=== PATIENT | female | born 1990 ===

== ENCOUNTER 2017-12-29 01:18 | Inpatient (IN) | payer OTHER ==
[~2017-12-29] VITALS: Ht 165.1 cm; Wt 117.9 kg
[2017-12-29 04:34] LABS: ABSOLUTE BASOPHIL COUNT 0 /CUMM (0.0-0.2); ABSOLUTE EOSINOPHIL COUNT 0.1 /CUMM (0.0-0.7); ABSOLUTE GRANULOCYTE CT 14.4 /CUMM (1.4-6.5); ABSOLUTE LYMPH COUNT 1.9 /CUMM (1.2-3.4); ABSOLUTE MONOCYTE COUNT 0.8 /CUMM (0.10-0.60); BASOPHIL % 0.2 % (0.0-2.0); EOSINOPHIL % 0.6 % (0-5); GRANULOCYTE % 83.6 % (42.2-75.2); HEMATOCRIT 32.9 % (37-47); MEAN CORPUSCULAR HGB 25.6 PG (27.0-31.0); MEAN CORPUSCULAR HGB CONC 32.9 G/DL (33.0-37.0); MEAN CORPUSCULAR VOLUME 77.9 FL (81.0-99.0); MEAN PLATELET VOLUME 10.8 FL (7.4-10.4); PLATELET COUNT 276 /CUMM (130-400); RBC DISTRIBUTION WIDTH 14.3 % (11.5-14.5); RED BLOOD CELL CT 4.22 /CUMM (4.20-5.40); WHITE BLOOD CELL COUNT 17.2 /CUMM (4.8-10.8)
--- NOTE | 2017-12-29 09:47 | History & Physical ---
General Information and HPI MD Statement: I have seen and personally examined CARL KING and documented this H&P. The patient is a 27 year old female at 39[] weeks and [0] days gestation who presented with a chief complaint of [SROM of clear fluid and some uterine cramping.]. Source of Information: patient, record Exam Limitations: no limitations History of Present Illness: Ms. King called through the service c/o leaking clear AF and having mild UCs every 5-10min. 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 She has had no vaginal bleeding, and the baby has been moving. 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 History: macrosomia, 1 elective Ab Past Pregnancies Past Pregnancies: Date of Delivery: n/a Medical History Blood Transfusion Hx: No Type of Reaction: none Neurological: NONE EENT: allergies Cardiovascular: NONE Respiratory: asthma Gastrointestinal: constipation Renal: urinary incontinence Musculoskeletal: chronic back pain Psychiatric: NONE Endocrine: obesity, MORBID obesity Blood Disorders: anemia 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 Home Who Do You Live With? partner Primary Language: Malian Smoking Status: Current Some Day Smoker ETOH Use: denies use Illicit Drug Use: denies illicit drug use Living Will? unknown Power of Factory Hand/HCP? unknown Other Social History: Pt. presents in labor wearing a tight "wiggle dress", heavily made up, wearing false eyelashes, lots of perfume, high heels, and long painted fingernails. 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 EENTM: Reports: nasal congestion. Cardiovascular: Reports: peripheral edema. Respiratory: Reports: no symptoms. GI: Reports: nausea. Genitourinary: Reports: frequency. Musculoskeletal: Reports: back pain. Skin: Reports: rash. Neurological/Psychological: Reports: tingling. Hematologic/Endocrine: Reports: no symptoms. Immunologic/Allergic: Reports: no symptoms. All Other Systems: Reviewed and Negative Date of LMP: 04/08/17 Post Menopausal: No Mammogram Testing Status: Test never done Date of Last Pap Smear: 06/13/17 Colonoscopy Testing Status: Test never done Exam & Diagnostic Data Last 24 Hrs of Vital Signs/I&O Intake & Output 12/29 1600 08/ 0800 12/29 0000 Intake Total Output Total Balance Patient 260 lb Weight Obstetric Exam Wgt Gained During : 30 lbs Pelvimetry: adequate Dilation (cm): 3 Effacement (%): 100 Station: -2 Membranes: intact Fluid: unknown Fundal Height (cm): 39 Multiple Gestation? No Contractions: Q3 #1 - FHR Baseline: 140 Category: 1 Estimated Weight: 4000g Presentation: VTX Patient for Induction? No Hernandez Score Hernandez Score Response Value Cervix Position: anterior 2 Cervix Consistency: soft 2 Cervix Effacement: >80% 3 Cervix Dilation: 3-4 cm 2 Cervix Station: -2 1 Total 10 Physical Exam General Appearance Alert, Oriented X3, Mild Distress (crying) Skin No Significant Lesion HEENT Atraumatic, Mucous Membr. moist/pink Neck Supple, No JVD Lymphatic Cervical nl Cardiovascular Regular Rate Lungs Normal Air Movement Abdomen Soft, No Tenderness, No Masses Neurological Normal Gait, Normal Speech, Sensation Intact, Reflexes 2+ Extremities No Cyanosis (symmetrical peripheral edema) Vascular Pulses Symmetrical Breasts Breast appear nl Reproductive (FEMALE) Normal female genitalia Pelvic (FEMALE) No Discharge Rectal Guiac Negative (hemorrhoids) Labs Blood Type & Rh: A+ Antibody Screen: neg Hct/Hgb & Platelets #1: 11.7/38.8%, 231K Hct/Hgb & Platelets #2: 10.5/36.4%, 262K Rubella: Immune VDRL #1: NR VDRL #2: NR HbsAg: NR HIV #1: NR HIV #2 NR 1 Hr P Group B Strep: pos PCN allergy, Clinda resistant, Vanco will be used Initial Ultrasound: 06/13/17 - 10w4d Anatomy Ultrasound: 08/21/17 - normal anatomy and growth Ultrasound for EFW: 10/16/17 - 28w, 72% 11/26/17 - 34w3d, 97% 8/7/18 - 38w, >97% Genetic Testing: normal 1st TMS and Counsyl Prelude DNA analysis Last 24 Hrs of Labs/Eder: Laboratory Tests 12/29/17 0400: CBC w Diff MAN DIFF ORDERED, RBC 4.22, MCV 77.9 L, MCH 25.6 L, MCHC 32.9 L, RDW 14.3, MPV 10.8 H, Gran % 83.6 H, Lymphocytes % 10.8 L, Monocytes % 4.8, Eosinophils % 0.6, Basophils % 0.2, Absolute Granulocytes 14.4 H, Absolute Lymphocytes 1.9, Absolute Monocytes 0.8 H, Absolute Eosinophils 0.1, Absolute Basophils 0, Platelet Estimate ADEQUATE, Polychromasia 1+, Hypochromic- Microcytic 1+, Urine Color YEL, Urine Clarity HAZY H, Urine pH 6.0, Ur Specific [place] 1.020, Urine Protein NEG, Urine Ketones 15 H, Urine Nitrite NEG, Urine Bilirubin NEG, Urine Urobilinogen 0.2, Ur Leukocyte Esterase LARGE H, Ur Microscopic SEDIMENT EXAMINED, Urine RBC RARE, Urine WBC 50-75 H, Ur Epithelial Cells MOD H, Urine Bacteria FEW H, Urine Hemoglobin NEG, Urine Glucose NEG 12/29/17 0348: Membrane Rupture Cancelled 12/29/17 0140: Membrane Rupture NEGATIVE Assessment/Plan As Ranked By This Provider Problem List: 1. Delivery by section of full-term infant 2. Arrested active phase of labor 3. macrosomia 4. Spontaneous onset of labor 5. Morbid obesity 6. Primiparous 7. 39 weeks gestation of Core Measures Venous Thromboembolism VTE Risk Factors Smoker No Mechanical VTE Prophylaxis d/t Early Ambulation No VTE Pharm Prophylaxis d/t Surgical Contraindication (will order postop) Attending MD Review Statement Attending Statement Attending MD Statement: examined this patient, discussed with family, reviewed EMR data (avail), discussed w/nursing
--- NOTE | 2017-12-29 09:54 | PN- OBGYN ---
Surgical Brief Attending Note Brief Attending Note: 0930 c/o vaginal pressure, otherwise comfortable with epidural, FHR 150, category 1, no decels, UCs q3-4, moderate Cervix 7-8cm/100%/VTX -1 A: - normal labor progress -suspect macrosomia, vtx is well-engaged in pelvis, team is aware of and ready for risk of shoulder dystocia P: con't present management anticipate 1145 Remains in control, some more pressure sensation. FHR 145, few accels, no decels UCs q3-4, uterus gets firm Cervix 9cm/VTX -1 maternal temp 99. Received one Vanco dose at 5am. 1600 fully dilated with an anterior lip, VTX -1 station. - Team tried to teach patient to push with her UCs, in order to push the lip out of the way, but this went poorly as her UCs are so far apart and mild, and the patient insists on keeping her knees and legs closed in modesty. I will start a small dose of Pitocin on her in order to increase the frequency and strength of UCs so patient can learn to push her baby out. I discussed this with the patient. 1929 I re-evaluated the patient again. She received an epidural bolus 1.5 hours ago, but is now feeling not only her UCs but vaginal pressure as well. FHR BL 140, few accels, no decels, decreased variability UCs q2-4 on Pitocin 1mu. She received her 2nd dose of Vanco. A: protracted labor, suspected macrosomia P: will begin stage 2, if patient cooperative - she is eager to try, if patient is unable to push I'll deliver the baby by primary C/S. 2029 Pt. has learned to push with Nursing, and is pushing hard. VTX is at -1/0 station. There is a small caput, no molding. LOT/GABRIELA position. UCs every 2-4, firm. FHR 150, decreased variability, occ. variable. Will recheck in 30min. 2114 No descent of the VTX after pushing effectively for more than an hour. I recommended delivery by primary C/S due to arrest of descent. Risks, benefits, purpose, and alternatives d/w patient, questions answered, and informed consent obtained. Team called in.
--- NOTE | 2017-12-30 00:25 | Operative Report ---
Operative/Inv Procedure Report Surgery Date: 12/29/17 Name of Procedure: Primary C/S Pre-Operative Diagnosis: arrest of descent Post-Operative Diagnosis: same, with brow position upon delivery of VTX Estimated Blood Loss: 800cc Surgeon/Unit Aide: Yosi ISAAC,Alejandra Zavala MD Anesthesia: moderate sedation, block Monitors: BP, EKG, O2 sat, temp, RR IV Fluids: LR Implants: none Urine Output: 500cc, clear, red-tinged, catheterized Drains: Senior Specimens: cord bloods Microbiology: urine culture Tourniquet: none Complications: none Condition: good Operative Indication: arrest of active labor at term Operative/Procedure Note Note: The patient was brought to the OR, placed on the OR table in the dorsal supine position with a left lateral tilt. Her labor epidural had been re-dosed for C/S by Anesthesia. The abdomen was prepped with Chloroprep. After drying drapes were placed creating the sterile field, the patient was tested and the block was found to be adequate, and a time-out was performed. The skin was incised with a scalpel in a Pfannenstiel fashion, the incision was carried down through the subcutaneous tissue with cautery, with close attention to hemostasis. The fascia was nicked on each side of the linea alba and opened with cautery each side in a curvilinear fashion. The superior and inferior median raphes were incised with Damian scissors, the rectus muscles were bluntly in the midline, the peritoneum was grasped and entered bluntly, and the peritoneal opening was bluntly stretched. The uterus was palpated for rotation. The lower [place] blade was placed suprapubically and the Salcido retractor was placed superiorly in the incision, and a bladder flap was created with Metzenbaum scissors, and then loosened bluntly off the lower uterine segment. The [place] was repositioned, and then the lower uterine segment was incised transverely with Metzenbaum scissors. The uterine incision was extended bluntly, and clear amniotic fluid was noted. The retractors were removed and the vertex was delivered. The head was found to be very extended with the face posterior and the brow presenting, so with difficulty delivery of the head was accomplished with pushing the head up out of the pelvis and simultaneously flexing the neck. The mouth and nose were suctioned, the face was wiped clean with a lap pad, active limb movements and spontaneous cry were noted, the cord was doubly clamped and cut, and the infant was handed off to the Pediatric team in attendance. The placenta was delivered spontaneously and completely from the uterine cavity, the uterus was exteriorized, wrapped in a moist lap pad, the cavity was wiped clean of membranes with a dry lap pad. The incision angles were grasped with T clamps, and the uterine incision was then closed in 2 layers with #1.0 chromic; the first layer was a running locking stitch, and the second layer was an imbricating stitch. There was good hemostasis of the uterine closure. The bladder flap was then reapproximated with a running stitch of 2.0 Vicryl. The cul-de-sac was irrigated and cleaned of clots, the adnexa were inspected and found to be normal. The uterus was then returned to the abdominal cavity. The gutters were cleaned of clots with clean moist lap pads, and the uterine incision was reinspected for hemostasis. All lap pads and instruments were removed from the abdominal cavity, and a surgical sweep was negative. The parietal peritoneum was grasped with Jailyn clamps and closed in a running fashion with 2.0 Vicryl. The rectus muscles were reapproximated in the midline with interrupted figure-of-8 sutures of 2.0 Vicryl. Hemostasis was evaluated and found to be good. The rectus fascia was closed with #1 Vicryl from each incision corner to the midline. The subcutaneous tissue was irrigated, checked for hemostasis with cautery, and closed with interrupted sutures of 2.0 plain gut. The skin was closed with alexy. The wound was cleaned and dried, a sterile dressing, and then a pressure dressing were applied. The patient was cleaned and changed and transferred to recovery in very good condition. The needle, instrument, lap pad, and sponge counts were correct twice by the end of the procedure. <Electronically signed by Kathy Deluca MD> 12/31/17 0037 CC: Kahty Deluca MD Report Status: Signed Report #: [id number] Page[p pg] Findings: single viable female infant, 9,9, 7#, from the extended brow position, clear AF, 3VC, placenta intact, uterus, tubes, and ovaries normal Discharge Disposition: cbc CC: Kathy Deluca MD Report Status: Signed Report #: [id number] Page[p pg]
[2017-12-30 01:22] VITALS: BP 113/61
[2017-12-30 09:23] LABS: ABSOLUTE BASOPHIL COUNT 0 /CUMM (0.0-0.2); ABSOLUTE EOSINOPHIL COUNT 0 /CUMM (0.0-0.7); ABSOLUTE GRANULOCYTE CT 18.4 /CUMM (1.4-6.5); ABSOLUTE LYMPH COUNT 1.1 /CUMM (1.2-3.4); BASOPHIL % 0 % (0.0-2.0); EOSINOPHIL % 0 % (0-5); GRANULOCYTE % 89.6 % (42.2-75.2); HEMATOCRIT 28.6 % (37-47); MEAN CORPUSCULAR HGB 25.1 PG (27.0-31.0); MEAN CORPUSCULAR HGB CONC 32.2 G/DL (33.0-37.0); MEAN CORPUSCULAR VOLUME 78.2 FL (81.0-99.0); MEAN PLATELET VOLUME 10.5 FL (7.4-10.4); PLATELET COUNT 229 /CUMM (130-400); RBC DISTRIBUTION WIDTH 14.7 % (11.5-14.5); RED BLOOD CELL CT 3.65 /CUMM (4.20-5.40); WHITE BLOOD CELL COUNT 20.6 /CUMM (4.8-10.8)
--- NOTE | 2017-12-30 15:48 | PN- OBGYN ---
Surgical Brief Attending Note Brief Attending Note: POD 1 Patient laying in bed supine, same position she labored in for 8 hours unwilling to elevate head. The room was full with 14 visitors, RN and I asked them to step out briefly. Pt. 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 (labor epidural was used in OR and did not work well, not much Duramorph given). Earlier was in chair, +void, ambulated in room. Tolerating POs, no N&V. afebrile, VS normal, UOQ adequate Lips - pink, moist Neck - supple Abd - soft, NT Fundus - firm, NT Dressing - dry/intact Perineum - dry Extr - benign A: stable s/p C/S for arrest of descent, brow position in OR morbid obesity anemia, normal small drop from admission H/H P: gradual advancement of diet and mobility Lovenox daily, ALPS until fully mobile Incentive spirometer (asthma, smoker, obese, immobile) alexy to remain past POD 3
[2017-12-31 08:09] LABS: ABSOLUTE BASOPHIL COUNT 0 /CUMM (0.0-0.2); ABSOLUTE EOSINOPHIL COUNT 0 /CUMM (0.0-0.7); ABSOLUTE GRANULOCYTE CT 16.6 /CUMM (1.4-6.5); ABSOLUTE MONOCYTE COUNT 0.5 /CUMM (0.10-0.60); BASOPHIL % 0 % (0.0-2.0); EOSINOPHIL % 0.1 % (0-5); HEMATOCRIT 28.2 % (37-47); MEAN CORPUSCULAR HGB 25.7 PG (27.0-31.0); MEAN CORPUSCULAR HGB CONC 33.1 G/DL (33.0-37.0); MEAN CORPUSCULAR VOLUME 77.8 FL (81.0-99.0); MEAN PLATELET VOLUME 10.3 FL (7.4-10.4); RBC DISTRIBUTION WIDTH 14.4 % (11.5-14.5); RED BLOOD CELL CT 3.62 /CUMM (4.20-5.40); WHITE BLOOD CELL COUNT 18.2 /CUMM (4.8-10.8)
[2017-12-31 09:17] LABS: GRANULOCYTE % 91.5 % (42.2-75.2); PLATELET COUNT 252 /CUMM (130-400)
--- NOTE | 2017-12-31 09:41 | PN- Post Delivery/GYN ---
Subjective Subjective: c/o nausea and vomiting, she has had nausea and vomiting on and off during labor but it now has returned in a more severe and protracted fashon unresponsive to Zofran. Review of Systems Constitutional: Denies: chills, fever. EENTM: Denies: blurred vision, double vision, visual changes. Cardiovascular: Denies: chest pain. Respiratory: Denies: cough, short of breath. Gastrointestinal: Reports: abdominal pain, constipation, distention, nausea, vomiting. Genitourinary: Denies: dysuria. Neurological/Psychological: Denies: anxiety, depressed. Objective Last 24 Hrs of Vital Signs/I&O vss now tachycardia 120 bpm Physical Exam General Appearance Alert, Oriented X3, Cooperative, No Acute Distress HEENT Atraumatic, PERRLA, Mucous Membr. moist/pink Neck Supple Cardiovascular Regular Rate (120bpm regular) Lungs Clear to Auscultation, Normal Air Movement Abdomen Soft, fundus firm somewhat distended abdomen decreased BS incision clean and dry Neurological Normal Gait, Normal Speech Extremities No Clubbing (pedal edema) Current Medications: Current Medications Sig/Shantelle Start time Last Medication Dose Route Stop Time Status Admin Acetaminophen 1,000 MG Q6P PRN 12/30 0800 DC IV Acetaminophen 650 MG Q4P PRN 12/29 2345 AC PO Bisacodyl 10 MG DAILY NEEDED PRN 12/29 2345 AC MT Diphenhydramine HCl 50 MG Q6P PRN 12/30 0030 AC IM Enoxaparin Sodium 40 MG DAILY 12/30 0900 AC 12/30 SC 0908 Ephedrine 5 MG EVERY 5 MIN PRN 12/29 0615 WA 12/29 IV 0639 Hydromorphone HCl 50 MG SEE ADMIN CRITERIA 12/30 0045 DC 12/30 IV 0300 Ibuprofen 800 MG Q6P PRN 12/29 2345 AC 12/31 PO 0114 Ketorolac 30 MG Q6P PRN 12/30 0230 DC 12/30 Tromethamine IV 12/31 0229 1153 Lactated Ringer's 1,000 ML Q8H 12/29 2345 DC IV Magnesium Hydroxide 30 ML DAILY NEEDED PRN 12/29 2345 AC PO Metoclopramide HCl 10 MG Q6P PRN 12/30 0230 DC IV Naloxone HCl 0.2 MG .[STAT] PRN 12/30 0015 DC IV Ondansetron HCl 4 MG Q4 HRS NEEDED PRN 12/31 0630 AC 12/31 PO 0743 Oxycodone/ 1 TAB Q4P PRN 12/29 2345 AC 12/31 Acetaminophen PO 0114 Oxycodone/ 2 TAB Q4P PRN 12/29 2345 AC Acetaminophen PO Oxytocin 30 UNITS PER PROTOCL 12/29 1615 DC 12/29 Lactated Ringer's 500 ML IV 1628 Promethazine HCl 50 MG Q4P PRN 12/30 0030 DC IM 12/30 2344 Promethazine HCl 25 MG Q4P PRN 12/30 0015 DC IM 12/30 2344 Senna 187 MG AT BEDTIME NEED.. 12/29 2344 AC 12/30 PO 2122 Simethicone 80 MG Q6P PRN 12/30 2129 AC 12/30 PO 2122 Simethicone 0 .STK-MED ONE 12/31 2119 DC PO Last 24 Hrs of Labs/Eder: Laboratory Tests 12/31/17 0630: CBC w Diff NO MAN DIFF REQ, RBC 3.62 L, MCV 77.8 L, MCH 25.7 L, MCHC 33.1, RDW 14.4, MPV 10.3, Gran % 91.5 H, Lymphocytes % 5.7 L, Monocytes % 2.7, Eosinophils % 0.1, Basophils % 0, Absolute Granulocytes 16.6 H, Absolute Lymphocytes 1.0 L, Absolute Monocytes 0.5, Absolute Eosinophils 0, Absolute Basophils 0 Assessment/Plan Assessment/Plan post op vomiting will start iv and keep NPO pt has not been taking excessive narcotic analgesia cbc stable order electrolytes upright CXR with abdominal Xray upright and supine Problem List: 1. Morbid obesity 2. Delivery by section of full-term 3. Vomiting affecting , delivered Attending MD Review Statement Attending Statement Attending MD Statement: examined this patient, discussed with family, discussed with nursing
--- NOTE | 2017-12-31 13:15 | RADIOLOGY REPORT ---
EXAMINATION: XR ABDOMEN MULTIPLE VIEWS CLINICAL INDICATION: Possible ileus, nausea and vomiting postop. COMPARISON: None TECHNIQUE: 2 views of the abdomen. FINDINGS: Dilated loops of small bowel and proximal large bowel are present with air-fluid levels. There is no gas in the sigmoid colon or rectum. No free air convincingly demonstrated. IMPRESSION: Dilated loops of small bowel and proximal large bowel with no air in the sigmoid colon or rectum. Findings could represent the bowel obstruction or ileus.
--- NOTE | 2017-12-31 13:41 | RADIOLOGY REPORT ---
EXAMINATION: XR CHEST CLINICAL INFORMATION: Possible ileus, atelectasis, PE. Tachycardia postop. COMPARISON: None TECHNIQUE: 2 views of the chest were obtained. FINDINGS: The cardiomediastinal silhouette is within normal limits. The lungs are well expanded and clear with no significant atelectasis or pleural effusion. IMPRESSION: No acute cardiopulmonary findings.
--- NOTE | 2017-12-31 14:06 | PN- OBGYN ---
Surgical Brief Attending Note Brief Attending Note: Pt feeling better no vomiting since 9am CBC is stable HR is 100 Potassium and electrolytes normal CXR normal Abdominal films ilius vs. SBO. plan will continue NPO and prenteral anti-emetics
--- NOTE | 2018-01-01 11:24 | PN- OBGYN ---
Surgical Brief Attending Note Brief Attending Note: pt feeling a little better. last episode of emesis at 6a, small amt, bilious. ambulating. voiding. +BM x once and + flatus x once this AM. Not hungry. Feels less distended. pain well controlled. afeb, v/ss nad, smiling abd softly distended, hypoactive bs, nt, ff inc c/d/i w/ clips tirso min lochia ext nt +2 b/l le ed a/p pod 3 s/p c/s, postop course c/b ileus, slowly resolving -cont npo, iv hydration -rpt axr -antacids iv -enc oob / amb -cont current mgmt
--- NOTE | 2018-01-01 16:25 | RADIOLOGY REPORT ---
EXAMINATION: XR ABDOMEN MULTIPLE VIEWS CLINICAL INDICATION: Vomiting. Presumptive diagnosis of ileus. COMPARISON: Two-view abdomen dated 12/31/2017. TECHNIQUE: 2 views of the abdomen performed on 3 images. FINDINGS: There is continued marked gaseous distention of the colon and small bowel loops in the abdomen with multiple air-fluid levels on the upright view. No gas is seen in the rectum. No free air is seen. The appearance has not significantly changed compared to the prior study. Lung bases are clear. Bony structures are grossly unremarkable. Multiple alexy are seen overlying the lower pelvis. IMPRESSION: No interval change in abnormally dilated and gas distended small and large bowel loops with multiple air-fluid levels. In the recent postoperative setting, findings are most likely related to ongoing ileus. However, continued close follow-up is recommended to exclude evolving distal bowel obstruction.
--- NOTE | 2018-01-01 16:27 | Cons- General Surgery ---
Risa Sales 01/01/18 1606: General Information and HPI Consulting Request Date of Consult: 01/01/18 Requested By: Kathy Deluca MD Reason for Consult: Post operative ileus vs SBO Source of Information: patient, family Exam Limitations: no limitations History of Present Illness: This is a 27 yo female that is POD 2 s/p that developed nausea/ vomiting POD 0 shortly after surgery. After having her early sunday morning, the pt woke up sunday and had pancake and coffee for breakfast then soda and burger for lunch. Later sunday evening, the pt began to feel nauseous and vomited. She feels that maybe she ate too much, too fast post-op. Since sunday night, the pt has had numerous episdoes of vomiting every few hours w/ associated nausea. This morning her last episode of vomiting was 4 am. She passed a formed stool and diarrhea this AM. She has been passing flatus throughout the day as well. She feels better today and states she is thirsty but doesn't have an appetite yet. The pt has been oob and ambulating well. AXR done yesterday showed ileus vs sbo. Repeat AXR done today and reading is pending. Pt has been NPO since sunday night. She denies any cp/sob. 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 Home Who Do You Live With? partner Primary Language: Armenian Smoking Status: Current Some Day Smoker ETOH Use: denies use Illicit Drug Use: denies illicit drug use Living Will? unknown Power of Educational Technology Coordinator/HCP? unknown Other Social History: Pt. presents in labor wearing a tight "wiggle dress", heavily made up, wearing false eyelashes, lots of perfume, high heels, and long painted fingernails. Employment History Employment: Employed Profession/Employer: [employer] Review of Systems Review of Systems: Negative besides pertinent positives in HPI. Exam & Diagnostic Data Physical Exam: Gen: O&Ax3, laying in bed comfortably, appears in no distress, pleasant mood/ affect Lungs: CTA Heart: S1 and s2 heard. RRR Abdomen: distant bs, soft, distended, nontender to palpation, pfannenstial incision, no incisonal site tenderness with alexy intact, dry, no drainage LE: 2+ bilateral edema, skin is warm/dry Assessment/Plan Assessment/Plan Assessment: This is a 27 yo female that is POD 2 s/p that developed nausea/ vomiting POD 0, consulted by surgery, stable at this time. Plan: -c/w IV fluids -Keep NPO -IV toradol for pain, avoid narcotics -Encourage oob, ambulation -Monitor electrolytes -Discuss with Dr. Chen for possible further imaging Copies To: Yunior Luna; April ISAAC,Kareem N. Consult Acknowledgment - Thank you for your consult request. Yunior Cheng 01/01/18 1427: Exam & Diagnostic Data Vital Signs and I&O Refer to chart Assessment/Plan Assessment/Plan Agree with RUFINA. Patient is status post for arrest of desecent on 12/30/17 who continued to have nausea and multiple episodes of bilious vomiting after surgery. She was taking Percocet for pain. She reports having a BM on morning of 01/01, followed by diarrhea. AXRs were reviewed and revealed dilated and gas distended small and large bowel loops with multiple air-fluid levels with no significant change from the axr the day prior. Due to improvement of symptoms and return of bowel function, postop ileus appears to be resolving. Continue conservative management with bowel rest, IV hydration, antiemetics and avoidance of narcotics. Monitor with serial abdominal exams and encourage ambulation. Place NGT if symptoms worsen. Surgery will continue to follow. Patient was discussed with Dr. Travis who is in agreement. Consult Acknowledgment - Thank you for your consult request. April ISAAC,Kareem 01/03/18 1312: Assessment/Plan Consult Acknowledgment - Thank you for your consult request. Attending MD Review Statement Attending Statement Attending Statement: examined this patient, discussed with family Attending Assessment/Plan: Agree with above note covering both the coming this morning to evaluate 27-year- old nondiabetic nonsmoker no medical problems, 2-1/2 days paly there were no complications during the surgery, but postoperatively she is become distended vomiting yesterday's x-rays suggested ileus versus bowel obstruction they wanted general surgery to evaluate. Patient denies any personal or family history of bowel issues she moves her bowels regularly no constipation. On postop day 1 she did have solid food started vomiting after this she is passing a little bit of gas but no bowel movement she has some general abdominal discomfort from vomiting but no focal spot. The PFSH and ROS were reviewed family history positive for diabetes or, past surgical history no prior abdominal surgery past medical history no diabetes social history no smoking Constitutional: No fever, sweats or weight loss ENMT: No sore throat Cardiovascular: No chest pain, palpitations or leg swelling Respiratory: No shortness of breath, cough, or sputum or dyspnea on exertion GI: No GERD or bleeding per rectum : No dysuria or hematuria Musculoskeletal: No new muscle weakness, bone or joint pain Skin / Breast: No jaundice, rashes or itching Psychiatric: No history of drug or alcohol abuse no depression or anxiety Hematologic / lymphatic system: No problems with excessive bleeding, bruising, or blood clots Vital signs reviewed above stable not tachycardic afebrile Constitutional: pleasant, no acute distress, conversant Eyes: sclera anicteric ENMT: ears and nose atraumatic, moist mucous membranes, good dentition, no lip lesions Neck: Supple, trachea is midline, no cervical or supraclavicular adenopathy and no palpable thyromegaly Cardiovascular: S1, S2, no murmurs, no peripheral edema Respiratory: clear to auscultation with normal respiratory effort and no intercostal retractions GI: abdomen soft, nontender, distended, positive bowel sounds, no palpable hepatosplenomegaly Extremities / lymphatics: symmetrically warm, free range of motion no peripheral edema, no cervical, supraclavicular, axillary, or inguinal adenopathy Musculoskeletal: Did not evaluate gait and station, no digital cyanosis, good muscle strength and tone no atrophy, motor grossly 5 out of 5 throughout Skin: no jaundice, no rashes warm, nondiaphoretic, no areas of erythema or induration Psychiatric: mood and affect are appropriate and alert and oriented to person place and time Studies reviewed the past 2 days white blood cell count went from 20-18 hemoglobin stable at 9, electrolytes early today sodium 139 potassium 2.9 chloride 108 bicarbonate 24 anion gap 7 on PACS myself I saw yesterday's multiview shows dilated small and large bowel Impression is other than recent surgery patient doesn't have an obvious reason for mechanical bowel obstruction she's not really taking a lot of narcotics there could be an ileus component however that's what looks like on the multiview I would repeat it today hold off on NG tube unless she continues to vomit keep nothing by mouth with suggest turning IV fluids down from rate of 200 ' Her hemoglobin is stable consider if hematoma could be causing this but no signs of active bleeding if she doesn't improve consider CT scan, await today's multiview.
--- NOTE | 2018-01-02 09:26 | PN- General Surgery ---
See Addendum Subjective Subjective: Patient reports feeling worse today compared to yesterday. She reports nausea with associated belching. She reports ambulating in the halls and the urgency to go to the bathroom. She reports passing minimal flatus. Denies bm or vomiting. Objective Vital Signs and I&Os BP 108/64, HR 103, RR 18, T 97.7 O2 97% ON RA Physical Exam: Gen - resting uncomfortably in nad Abdomen: Soft, distended, faint bs, pfannenstial incision closed with alexy, vickey, healing well alexy intact, mildly tender to diffuse palpation, no signs of peritonitis Assessment/Plan Assessment/Plan 27 F s/p with postop ileus vs sbo Cont conservative management Advance to clears Avoid narcotics Cont serial abdominal exams Monitor I&Os Repeat chem today Encourage ambulation Will contine to follow D/w Dr. Travis Core Measures Venous Thromboembolism VTE Risk Factors Smoker No Mechanical VTE Prophylaxis d/t Early Ambulation No VTE Pharm Prophylaxis d/t Surgical Contraindication (will order postop)
[2018-01-02 10:32] LABS: ABSOLUTE BASOPHIL COUNT 0 /CUMM (0.0-0.2); ABSOLUTE EOSINOPHIL COUNT 0.1 /CUMM (0.0-0.7); ABSOLUTE GRANULOCYTE CT 6.3 /CUMM (1.4-6.5); ABSOLUTE LYMPH COUNT 0.7 /CUMM (1.2-3.4); ABSOLUTE MONOCYTE COUNT 0.4 /CUMM (0.10-0.60); BASOPHIL % 0.1 % (0.0-2.0); EOSINOPHIL % 0.8 % (0-5); HEMATOCRIT 25.4 % (37-47); MEAN CORPUSCULAR HGB 25.6 PG (27.0-31.0); MEAN CORPUSCULAR HGB CONC 32.9 G/DL (33.0-37.0); MEAN CORPUSCULAR VOLUME 77.7 FL (81.0-99.0); PLATELET COUNT 329 /CUMM (130-400); RBC DISTRIBUTION WIDTH 14.4 % (11.5-14.5); RED BLOOD CELL CT 3.26 /CUMM (4.20-5.40)
[2018-01-02 10:37] LABS: WHITE BLOOD CELL COUNT 7.5 /CUMM (4.8-10.8)
[2018-01-02 10:54] LABS: GRANULOCYTE % 84.4 % (42.2-75.2)
--- NOTE | 2018-01-02 11:50 | PN- OBGYN ---
Surgical Brief Attending Note Brief Attending Note: POD 4 Patient is sitting upright on a wooden chair, wrapped up in a blanket, A+OX3, in NAD Denies pain right now, on Toradol, no narcotics. Just has bilateral lower back soreness. Just passed a large amount of diarrhea, which gave her much abdominal relief. No N&V, tolerating sips of clears, but has no appetite for food as yet. Voiding without difficulty, no dysuria. Initial urine C&S negative. Ambulated in avery yesterday only when prodded by Nursing, has mostly stayed supine in her bed. Denies cough, SOB, sputum. Not using spirometer very much. Still on daily Lovenox, ALPS at the side of the bed. Not due to rough postop course so far, and breasts not engorged, but she wants to start nursing as soon as she can. T101.4 HR RR BP Lips - moist, pink Pharynx - clear Neck - supple Breasts - soft, nonengorged, NT, no rash Lungs - decreased breath souinds at bases, no rales, wheeze, or rhonchi Cor - RRR Abd - softly distended, "tinkling" BS, no guarding or rebound Fundus - firm, expected mild postop tenderness Incision - C/D/I, alexy in place, no induration, erythema or exudate Back - no CVAT Extr - benign, symmetrical peripheral edema similar to edema on admission, no calf cords Labs and imaging reviewed A: resolving postop ileus and now fever, s/p primary C/S for arrest of a 12-hour labor in a morbidly obese smoker, in labor presented with SROM and had an elevated WBC and low-grade temp to 99, +GBS carrier, PCN allergic and Clinda resistant, received Vanco X2 in labor, received one dose Ancef 3g for intraop prophylaxis exam nonfocal P: -Ileus vs. SBO - increased bowel function this morning is reassuring, she will try clears today, Surgery and GI consults and input appreciated -Fever - I requested consultation with Dr. Jensen of [facility]to help guide postop management, possibly with antibiotics, as the source of her fever is unclear and there are several possibilities in this high-risk patient. -Maternity - the baby is doing well, no sign of sepsis, as she feels better and becomes more mobile patient will participate more in the 's care
--- NOTE | 2018-01-02 15:03 | Cons- Infect Disease ---
General Information and HPI Consulting Request Date of Consult: 01/02/18 Requested By: Kathy Deluca MD Reason for Consult: fever Source of Information: patient, family History of Present Illness: This is a 27-year-old woman with a history of asthma, chronic back pain and multiple sexually transmitted diseases, including bacterial vaginosis, chlamydia and HPV, admitted on December 29, 39 weeks , after rupture of her membranes, with uterine cramping. On admission she was afebrile. Laboratory data revealed a white blood cell count of 17,000. Urinalysis rare RBC/50-75 WBCs. She was given Vancomycin in view of a positive Group B strep history and Penicillin allergy. She underwent a later in the evening, with Cefazolin prophylaxis, following arrest of descent. On the first day she developed nausea and vomiting, and an abdominal film revealed dilated loops of small and proximal large bowel. Her GI symptoms have improved, with decreased abdominal distention, but she developed a fever up to 101.7 this afternoon, associated with bilateral side and back pain. She has moved her bowels and denies any dysuria, cough, shortness of breath or chest pain. 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 Home Who Do You Live With? partner Primary Language: Malagasy Smoking Status: Current Some Day Smoker ETOH Use: denies use Illicit Drug Use: denies illicit drug use Living Will? unknown Power of Manager Utilization Management/HCP? unknown Other Social History: Pt. presents in labor wearing a tight "wiggle dress", heavily made up, wearing false eyelashes, lots of perfume, high heels, and long painted fingernails. Employment History Employment: Employed Profession/Employer: [employer] Review of Systems Review of Systems All Other Systems: Reviewed and Negative Exam & Diagnostic Data Last 24 Hrs of Vital Signs/I&O Her vital signs other than her fever are stable Physical Exam Other Physical Findings: She is awake and alert in no acute distress. T-max 101.7. Skin reveals no rash. HEENT exam is negative. Neck is supple with no adenopathy. Lungs are clear. Heart regular rhythm with no murmur. Abdomen is obese, distended, mildly tender on palpation, with no guarding or rebound, positive bowel sounds; lower abdominal incision clean, with no erythema or drainage. Back bilateral CVA tenderness. Extremities 1+ edema both lower extremities. Neuro is without focality. Last 24 Hours of Lab Results: Laboratory Tests 01/02 01/02 01/02 1340 1018 0900 Chemistry Sodium (137 - 145 mmol/L) 139 Potassium (3.5 - 5.1 mmol/L) 3.5 Chloride (98 - 107 mmol/L) 106 Carbon Dioxide (22 - 30 mmol/L) 28 Anion Gap (5 - 16) 5 BUN (7 - 17 mg/dL) 6 L Creatinine (0.5 - 1.0 mg/dL) 0.5 Estimated GFR (>60 ml/min) > 60 BUN/Creatinine Ratio (7 - 25 %) 12.0 Magnesium (1.6 - 2.3 mg/dL) 1.7 Hematology CBC w Diff NO MAN DIFF REQ WBC (4.8 - 10.8 /CUMM) 7.5 RBC (4.20 - 5.40 /CUMM) 3.26 L Hgb (12.0 - 16.0 G/DL) 8.3 L Hct (37 - 47 %) 25.4 L MCV (81.0 - 99.0 FL) 77.7 L MCH (27.0 - 31.0 PG) 25.6 L MCHC (33.0 - 37.0 G/DL) 32.9 L RDW (11.5 - 14.5 %) 14.4 Plt Count (130 - 400 /CUMM) 329 MPV (7.4 - 10.4 FL) 9.0 Gran % (42.2 - 75.2 %) 84.4 H Lymphocytes % (20.5 - 51.1 %) 9.6 L Monocytes % (1.7 - 9.3 %) 5.1 Eosinophils % (0 - 5 %) 0.8 Basophils % (0.0 - 2.0 %) 0.1 Absolute Granulocytes (1.4 - 6.5 /CUMM) 6.3 Absolute Lymphocytes (1.2 - 3.4 /CUMM) 0.7 L Absolute Monocytes (0.10 - 0.60 /CUMM) 0.4 Absolute Eosinophils (0.0 - 0.7 /CUMM) 0.1 Absolute Basophils (0.0 - 0.2 /CUMM) 0 Urines Urine Color Pending Urine Clarity Pending Urine pH Pending Ur Specific Dutton Pending Urine Protein Pending Urine Ketones Pending Urine Nitrite Pending Urine Bilirubin Pending Urine Urobilinogen Pending Ur Leukocyte Esterase Pending Ur Microscopic Pending Urine Hemoglobin Pending Urine Glucose Pending Last 24 Hours of Eder Results: Urine culture December 29 negative Blood cultures 2 January 02 pending Urine culture January 02 pending Diagnostic Data Recent Imaging Findings: Chest x-ray January 02 negative Abdominal x-ray January 01 no interval change in the abnormally dilated and gas- distended small and large bowel loops with multiple air-fluid levels Assessment/Plan Assessment/Plan Impression: This is a 27-year-old woman admitted on December 29 after rupture of her membranes , status post a following arrest of descent, with her postop course complicated by nausea and vomiting, felt to represent an ileus, and a fever, with her white blood cell count now normal. The source of her fever is unclear. She does report bilateral flank pain/ tenderness, raising concern for a pyelonephritis, though she denies any urinary symptoms. Of note her urinalysis on admission did reveal 50-75 white blood cells, likely related to her lochia, as her urine culture was negative. An intra-abdominal source, for example a biliary process, or C. difficile, with the report of diarrhea, could be considered, though her nausea and vomiting appear to have resolved. She has no pulmonary symptoms and her repeat chest x-ray is negative. She has had problems with her IVs but she has no obvious phlebitis. Other noninfectious causes of her fever, for example atelectasis or pelvic vein thrombophlebitis, may need to be considered if her fevers persist. She appears otherwise stable and her white blood cell count is normal; therefore feel that she can be followed off antibiotics pending further evaluation. Suggestion: 1. Repeat urinalysis and urine culture 2. Stool for C. difficile if her diarrhea recurs 3. Consider CT of the abdomen and pelvis if she remains febrile 4. Continue to follow off antibiotics pending above Consult Acknowledgment - Thank you for your consult request.
--- NOTE | 2018-01-02 20:44 | RADIOLOGY REPORT ---
EXAMINATION: XR CHEST CLINICAL INFORMATION: Fever. COMPARISON: Chest x-ray 12/31/2017 TECHNIQUE: 2 views of the chest were obtained. 1:37 PM FINDINGS: No significant abnormality is noted involving the heart, lungs, mediastinum, bony thorax or soft tissues. IMPRESSION: Unremarkable examination.
--- NOTE | 2018-01-02 22:33 | PN- OBGYN ---
See Addendum Surgical Brief Attending Note Brief Attending Note: Reviewed results so far with patient. Although sick, she seems in good spirits. She relates that nothing really hurts except the incision, only when she is vomiting, and her belly, when it was distended, but now it feels "a lot better". Repeat CXR neg. Repeat UA - Bilinogen ++, hepatic panel normal, ?hemolysis CT of Abd/Pelvis (with IV contrast) done, no report yet blood cultures and repeat urine cx pending Her abdomen seems softer and less distended than this morning, she continues to pass large amounts of gas and some liquid stool. She's been febrile most of the day, will give her IV Tylenol She vomitted again this evening, small amounts of bilious liquid. will give her IV Pepcid Q12h.
--- NOTE | 2018-01-02 22:48 | CT SCAN REPORT ---
EXAMINATION: CT ABDOMEN AND PELVIS WITH CONTRAST CLINICAL INFORMATION: Postoperative fever and ileus. COMPARISON: Plain film abdomen 12/31/2017, 12/31/2017. TECHNIQUE: Multidetector volumetric imaging was performed of the abdomen and pelvis following IV administration of 95 mL of Optiray 320 intravenous contrast. Sagittal and coronal reformatted images were obtained on the technologist's workstation. DLP: 1299.47 mGy-cm FINDINGS: LUNG BASES: The visualized lung bases are unremarkable. LIVER, GALLBLADDER, AND BILIARY TREE: The liver is normal in size, shape, and attenuation. No focal hepatic lesion or biliary ductal dilatation is present. The gallbladder is unremarkable with no evidence of radiopaque gallstones, gallbladder wall thickening, or obvious pericholecystic inflammatory changes. PANCREAS: Unremarkable. SPLEEN: Unremarkable. ADRENAL GLANDS: Unremarkable. KIDNEYS AND URETERS: The kidneys are normal in size, shape, and attenuation. No hydronephrosis, hydroureter, or calculi seen. No perinephric stranding. BLADDER: Unremarkable. GASTROINTESTINAL TRACT: There is distention of small bowel loops with fluid and air. There is a transition point in the right lower abdomen. The terminal ileum is decompressed. There is no distention of the colon. The bowel pattern is suggestive of a small bowel obstruction with transition the right lower quadrant. There is no twist of the bowel or mesenteric twist. MESENTERY: No free air or free fluid. LYMPH NODES: Normal. VASCULAR: Unremarkable. ABDOMINAL WALL/PELVIC VISCERA: Status post with fluid in the subcutaneous tissue and surgical skin clips at the anterior pelvis. There is a small amount of air and fluid within a mildly enlarged uterus OSSEOUS STRUCTURES: Unremarkable. IMPRESSION: 1. Status post . 2. Small bowel dilatation with transition point in right lower quadrant proximal to the terminal ileum. There is no dilatation of large bowel. Bowel pattern is therefore more likely due to a small bowel obstruction than ileus. This critical result was discussed with Dr. Deluca on 01/02/2018, 10:36 PM and it was ascertained that the content and urgency of the report was understood at the time of direct communication.
[2018-01-03 08:31] LABS: ABSOLUTE BASOPHIL COUNT 0 /CUMM (0.0-0.2); ABSOLUTE EOSINOPHIL COUNT 0.1 /CUMM (0.0-0.7); ABSOLUTE GRANULOCYTE CT 4.6 /CUMM (1.4-6.5); ABSOLUTE MONOCYTE COUNT 0.3 /CUMM (0.10-0.60); BASOPHIL % 0.2 % (0.0-2.0); EOSINOPHIL % 1.3 % (0-5); GRANULOCYTE % 77.4 % (42.2-75.2); HEMATOCRIT 25.2 % (37-47); MEAN CORPUSCULAR HGB 25.8 PG (27.0-31.0); MEAN CORPUSCULAR HGB CONC 33.7 G/DL (33.0-37.0); MEAN CORPUSCULAR VOLUME 76.6 FL (81.0-99.0); MEAN PLATELET VOLUME 8.8 FL (7.4-10.4); PLATELET COUNT 402 /CUMM (130-400); RBC DISTRIBUTION WIDTH 14.8 % (11.5-14.5); RED BLOOD CELL CT 3.28 /CUMM (4.20-5.40); WHITE BLOOD CELL COUNT 5.9 /CUMM (4.8-10.8)
--- NOTE | 2018-01-03 09:02 | PN- General Surgery ---
See Addendum Subjective Subjective: Patient reports that she is no better and feels like shes not progressing. She has abdominal distention, n/v/hiccups/eructations and diarrhea. Denies flatus. Ambulating and voiding without any difficulty. Nursing reports 300cc of bilious emesis last HS. No additional concerns from nursing. Objective Vital Signs and I&Os Vital Signs Date Time Temp Pulse Resp B/P B/P Pulse O2 O2 Flow FiO2 Mean Ox Delivery Rate 01/02 1900 101.8 Physical Exam: General: A, A, NAD Abdomen: Post , distended, mild diffuse tenderness to palpation, pfannensteil incision is c/d/i w/ alexy in place, no surrounding edema, erythema, ecchymosis, induration or drainage Extremities: No clubbing, cyanosis or edema Current Medications: Current Medications Sig/Shantelle Start time Last Medication Dose Route Stop Time Status Admin Acetaminophen 0 .STK-MED ONE 01/03 0827 DC IV Acetaminophen 0 .STK-MED ONE 01/03 0020 DC IV Acetaminophen 1,000 MG Q6P PRN 01/02 1915 01/03 N/A 1 UNIT IV 0100 Acetaminophen 0 .STK-MED ONE 01/02 1911 AL IV Acetaminophen 650 MG Q4P PRN 12/29 2345 01/02 PO 1435 Acyclovir See Dose APPLY TO SKIN 01/01 1530 01/01 Insts (1) TOP 1946 Albuterol Sulfate 2 PUF Q4P PRN 12/31 1430 INH Bisacodyl 10 MG DAILY NEEDED PRN 12/29 2345 [place] Dextrose/Lactated 1,000 ML .Q24H 01/02 0930 Ringer's IV Dextrose/Lactated 1,000 ML .Q5H 01/01 1000 AL 01/02 Ringer's IV 0810 Diphenhydramine HCl 50 MG Q6P PRN 12/30 0030 IM Enoxaparin Sodium 40 MG DAILY 12/30 0900 01/02 SC 1048 Famotidine 20 MG BID 01/02 2215 01/02 IV 2256 Ibuprofen 800 MG Q6P PRN 12/29 2345 12/31 PO 0114 Ketorolac 30 MG Q6-PRN PRN 12/31 1815 AL 01/02 Tromethamine IV 2027 Magnesium Hydroxide 30 ML DAILY NEEDED PRN 12/29 2344 AC PO Ondansetron HCl 4 MG Q6P PRN 12/31 1800 AC 01/03 IV 0508 Oxycodone/ 1 TAB Q4P PRN 12/29 2344 AC 12/31 Acetaminophen PO 0114 Oxycodone/ 2 TAB Q4P PRN 12/29 2344 AC Acetaminophen PO Senna 187 MG AT BEDTIME NEED.. 12/29 2344 AC 12/30 PO 2122 Simethicone 80 MG Q6P PRN 12/30 2129 AC 12/30 PO 2122 Dose Instructions: (1)Acyclovir: apply to affected area as needed Results Last 48 Hours of Labs: Laboratory Tests 01/03 01/02 01/02 08 1700 1417 Chemistry Sodium (137 - 145 mmol/L) Pending 136 L Potassium (3.5 - 5.1 mmol/L) Pending 3.4 L Chloride (98 - 107 mmol/L) Pending 103 Carbon Dioxide (22 - 30 mmol/L) Pending 27 Anion Gap (5 - 16) Pending 6 BUN (7 - 17 mg/dL) Pending 6 L Creatinine (0.5 - 1.0 mg/dL) Pending 0.6 Estimated GFR (>60 ml/min) > 60 BUN/Creatinine Ratio (7 - 25 %) Pending 10.0 Total Bilirubin (0.2 - 1.3 mg/dL) 0.7 Direct Bilirubin (< 0.4 mg/dL) 0.2 AST (14 - 36 U/L) 15 ALT (9 - 52 U/L) 27 Alkaline Phosphatase (<127 U/L) 120 Total Protein (6.3 - 8.2 g/dL) 5.3 L Albumin (3.5 - 5.0 g/dL) 2.6 L Hematology CBC w Diff NO MAN DIFF REQ WBC (4.8 - 10.8 /CUMM) 5.9 RBC (4.20 - 5.40 /CUMM) 3.28 L Hgb (12.0 - 16.0 G/DL) 8.5 L Hct (37 - 47 %) 25.2 L MCV (81.0 - 99.0 FL) 76.6 L MCH (27.0 - 31.0 PG) 25.8 L MCHC (33.0 - 37.0 G/DL) 33.7 RDW (11.5 - 14.5 %) 14.8 H Plt Count (130 - 400 /CUMM) 402 H MPV (7.4 - 10.4 FL) 8.8 Gran % (42.2 - 75.2 %) 77.4 H Lymphocytes % (20.5 - 51.1 %) 16.7 L Monocytes % (1.7 - 9.3 %) 4.4 Eosinophils % (0 - 5 %) 1.3 Basophils % (0.0 - 2.0 %) 0.2 Absolute Granulocytes (1.4 - 6.5 /CUMM) 4.6 Absolute Lymphocytes (1.2 - 3.4 /CUMM) 1.0 L Absolute Monocytes (0.10 - 0.60 /CUMM) 0.3 Absolute Eosinophils (0.0 - 0.7 /CUMM) 0.1 Absolute Basophils (0.0 - 0.2 /CUMM) 0 Urines Urine Color Cancelled Urine Clarity Cancelled Urine pH Cancelled Ur Specific [place] Cancelled Urine Protein Cancelled Urine Ketones Cancelled Urine Nitrite Cancelled Urine Bilirubin Cancelled Urine Urobilinogen Cancelled Ur Leukocyte Esterase Cancelled Ur Microscopic Cancelled Urine Hemoglobin Cancelled Urine Glucose Cancelled 01/02 01/02 1340 1018 Hematology CBC w Diff NO MAN DIFF REQ WBC (4.8 - 10.8 /CUMM) 7.5 RBC (4.20 - 5.40 /CUMM) 3.26 L Hgb (12.0 - 16.0 G/DL) 8.3 L Hct (37 - 47 %) 25.4 L MCV (81.0 - 99.0 FL) 77.7 L MCH (27.0 - 31.0 PG) 25.6 L MCHC (33.0 - 37.0 G/DL) 32.9 L RDW (11.5 - 14.5 %) 14.4 Plt Count (130 - 400 /CUMM) 329 MPV (7.4 - 10.4 FL) 9.0 Gran % (42.2 - 75.2 %) 84.4 H Lymphocytes % (20.5 - 51.1 %) 9.6 L Monocytes % (1.7 - 9.3 %) 5.1 Eosinophils % (0 - 5 %) 0.8 Basophils % (0.0 - 2.0 %) 0.1 Absolute Granulocytes (1.4 - 6.5 /CUMM) 6.3 Absolute Lymphocytes (1.2 - 3.4 /CUMM) 0.7 L Absolute Monocytes (0.10 - 0.60 /CUMM) 0.4 Absolute Eosinophils (0.0 - 0.7 /CUMM) 0.1 Absolute Basophils (0.0 - 0.2 /CUMM) 0 Urines Urinalysis LIGHT H Urine Color (YEL,AMB,STR) YEL Urine Clarity (CLEAR) HAZY H Urine pH (5.0 - 8.0) 8.0 Ur Specific [place] (1.001 - 1.035) 1.020 Urine Protein (NEG,<30 MG/DL) TRACE H Urine Ketones (NEG) NEG Urine Nitrite (NEG) NEG Urine Bilirubin (NEG) NEG Urine Urobilinogen (0.1 - 1.0 EU/dl) >=8.0 H Ur Leukocyte Esterase (NEG) SMALL H Ur Microscopic SEDIMENT EXAMINED Urine RBC (0 - 5 /HPF) 3-5 Urine WBC (0 - 2 /HPF) 1-3 H Ur Epithelial Cells (NONE,FEW) MOD H Urine Bacteria (NEG/NONE) FEW H Urine Hemoglobin (NEG) LARGE H Urine Glucose (N MG/DL) NEG 01/02 0900 Chemistry Sodium (137 - 145 mmol/L) 139 Potassium (3.5 - 5.1 mmol/L) 3.5 Chloride (98 - 107 mmol/L) 106 Carbon Dioxide (22 - 30 mmol/L) 28 Anion Gap (5 - 16) 5 BUN (7 - 17 mg/dL) 6 L Creatinine (0.5 - 1.0 mg/dL) 0.5 Estimated GFR (>60 ml/min) > 60 BUN/Creatinine Ratio (7 - 25 %) 12.0 Magnesium (1.6 - 2.3 mg/dL) 1.7 Assessment/Plan Assessment/Plan This is a 27 yo female with a past medical history of obesity and hsv who is 4 days post from a c/s complicated by postoperative ileus vs. sbo. From a surgical standpoint she is having diarrhea but also upper signs of obstruction. She may benefit from an NGT. Dr. Chen is going to evaluate the patient and determine if this is necessary. In the meantime continue npo, ivf. serial abdominal exams, and trend labs. I have otherwise encouraged ambulation, IS, and turn, cough and deep breathing techniques. PRN analgesics and antiemetics. Management of her other acute and chronic comorbidities I will defer to the primary team. Will continue to follow along closely. Thank you for allowing us to participate in this patients care. Problem List: 1. Postoperative ileus Core Measures Venous Thromboembolism VTE Risk Factors Smoker No Mechanical VTE Prophylaxis d/t Early Ambulation No VTE Pharm Prophylaxis d/t Surgical Contraindication (will order postop)
--- NOTE | 2018-01-03 12:41 | PN- Infect Dx ---
Subjective Subjective: T-max 101.8. She did vomit overnight but has had no further episodes this morning. She feels improved after Toradol, but remains mildly nauseous and anorexic. She also reported one liquid stool this morning. She notes some hesitancy on urination but no dysuria. Objective Last 24 Hrs of Vital Signs/I&O Vital Signs Date Time Temp Pulse Resp B/P B/P Pulse O2 O2 Flow FiO2 Mean Ox Delivery Rate 01/02 1900 101.8 Physical Exam Other Physical Findings: She appears comfortable in no acute distress Lungs are clear Heart regular rhythm with no murmur Abdomen is obese, soft, diffusely tender on palpation, with no guarding or rebound, positive bowel sounds; incision clean with no erythema or drainage Back no CVA tenderness Results Last 24 Hours of Lab Results: Laboratory Tests 01/03 01/02 01/02 0816 1700 1417 Chemistry Sodium (137 - 145 mmol/L) 135 L 136 L Potassium (3.5 - 5.1 mmol/L) 3.5 3.4 L Chloride (98 - 107 mmol/L) 102 103 Carbon Dioxide (22 - 30 mmol/L) 26 27 Anion Gap (5 - 16) 8 6 BUN (7 - 17 mg/dL) 7 6 L Creatinine (0.5 - 1.0 mg/dL) 0.6 0.6 Estimated GFR (>60 ml/min) > 60 > 60 BUN/Creatinine Ratio (7 - 25 %) 11.7 10.0 Total Bilirubin (0.2 - 1.3 mg/dL) 0.7 Direct Bilirubin (< 0.4 mg/dL) 0.2 AST (14 - 36 U/L) 15 ALT (9 - 52 U/L) 27 Alkaline Phosphatase (<127 U/L) 120 Total Protein (6.3 - 8.2 g/dL) 5.3 L Albumin (3.5 - 5.0 g/dL) 2.6 L Hematology CBC w Diff NO MAN DIFF REQ WBC (4.8 - 10.8 /CUMM) 5.9 RBC (4.20 - 5.40 /CUMM) 3.28 L Hgb (12.0 - 16.0 G/DL) 8.5 L Hct (37 - 47 %) 25.2 L MCV (81.0 - 99.0 FL) 76.6 L MCH (27.0 - 31.0 PG) 25.8 L MCHC (33.0 - 37.0 G/DL) 33.7 RDW (11.5 - 14.5 %) 14.8 H Plt Count (130 - 400 /CUMM) 402 H MPV (7.4 - 10.4 FL) 8.8 Gran % (42.2 - 75.2 %) 77.4 H Lymphocytes % (20.5 - 51.1 %) 16.7 L Monocytes % (1.7 - 9.3 %) 4.4 Eosinophils % (0 - 5 %) 1.3 Basophils % (0.0 - 2.0 %) 0.2 Absolute Granulocytes (1.4 - 6.5 /CUMM) 4.6 Absolute Lymphocytes (1.2 - 3.4 /CUMM) 1.0 L Absolute Monocytes (0.10 - 0.60 /CUMM) 0.3 Absolute Eosinophils (0.0 - 0.7 /CUMM) 0.1 Absolute Basophils (0.0 - 0.2 /CUMM) 0 Urines Urine Color Cancelled Urine Clarity Cancelled Urine pH Cancelled Ur Specific [place] Cancelled Urine Protein Cancelled Urine Ketones Cancelled Urine Nitrite Cancelled Urine Bilirubin Cancelled Urine Urobilinogen Cancelled Ur Leukocyte Esterase Cancelled Ur Microscopic Cancelled Urine Hemoglobin Cancelled Urine Glucose Cancelled 01/02 1340 Urines Urinalysis LIGHT H Urine Color (YEL,AMB,STR) YEL Urine Clarity (CLEAR) HAZY H Urine pH (5.0 - 8.0) 8.0 Ur Specific [place] (1.001 - 1.035) 1.020 Urine Protein (NEG,<30 MG/DL) TRACE H Urine Ketones (NEG) NEG Urine Nitrite (NEG) NEG Urine Bilirubin (NEG) NEG Urine Urobilinogen (0.1 - 1.0 EU/dl) >=8.0 H Ur Leukocyte Esterase (NEG) SMALL H Ur Microscopic SEDIMENT EXAMINED Urine RBC (0 - 5 /HPF) 3-5 Urine WBC (0 - 2 /HPF) 1-3 H Ur Epithelial Cells (NONE,FEW) MOD H Urine Bacteria (NEG/NONE) FEW H Urine Hemoglobin (NEG) LARGE H Urine Glucose (N MG/DL) NEG Last 24 Hours of Eder Results: Blood cultures January 02 negative Urine culture January 02 greater than 100,000 colonies of a non-lactose fermenting gram-negative reshma (possibly Proteus) and approximately 25,000 colonies of a lactose fermenting gram negative reshma Recent Imaging Studies: Chest x-ray January [address] of the abdomen and pelvis January 02 with IV contrast reveals small bowel dilatation with transition point in the right lower quadrant proximal to the terminal ileum, with no large bowel dilatation, likely due to a small bowel obstruction Assessment/Plan ID Impression: Recurrent fevers, with her white blood cell count normal, off antibiotics, now 4 days status post a , with evidence of a small bowel obstruction clinically and on imaging. Her positive urine culture is of unclear significance, with no definite urinary symptoms and with an unimpressive urinalysis, though this may have been affected by the Cefazolin prophylaxis she received perioperatively, and, in the absence of any other obvious source of fever, it may be reasonable to treat her. She does report diarrhea and C. difficile should be ruled out. Suggestion: 1. Follow-up final cultures 2. Stool for C. difficile 3. Further management of her small bowel obstruction per Surgery 4. Begin Ceftriaxone 1 g IV every 24 hours pending above
--- NOTE | 2018-01-03 13:04 | PN- OBGYN ---
Surgical Brief Attending Note Brief Attending Note: POD#5 pt is sitting in chair, c/o nausea, vomitted once overnight, as per nursing 300ml bilious emesis. also had 1 episode of watery stool 7AM. denies any incisional pain , viod without difficulties. ambulating well PE: VSS, T max 101.8 7pm last night. CV RRR lungs CTA B/L Abdomen: soft, mild distened, BS minimal . mild tedner at upper abdomen, no rebound or guarding, uterus firm, fundus below umbilicus. incision staple in place, D/C/I. lohcia mild Ext: DCT (-). image: CT scan last night show: SBO A/P: 27 yo, s/p , SBO, POD#5 1. SBO: surgery input appreciated, d/w Dr. Chen,in light of pt had diarrhea, likely partial SBO, will place NG tube, observe . 2. ID input aprreciated, d/w Dr Jensen, prelim urine culture show positive of gram negative rods, will start ceftriaxone IV now while waiting for the final report. 3. RT PP care and postoperative care.
--- NOTE | 2018-01-03 18:49 | RADIOLOGY REPORT ---
EXAMINATION: ABDOMEN 1 VIEW CLINICAL INFORMATION: Enteric tube placement. COMPARISON: 01/02/2018. TECHNIQUE: A supine view of the abdomen is provided. FINDINGS: Evaluation for bowel loops is limited as only the upper abdomen is included. However, previously identified dilated loops are less prominent on the current exam. An enteric tube is in place. The tip overlies the left upper quadrant, likely within the stomach. There are no air-fluid levels. The visualized lung bases are clear. The osseous structures are unremarkable. IMPRESSION: Enteric tube in place. Limited evaluation of the abdomen with interval decrease in dilated loops of bowel.
--- NOTE | 2018-01-04 07:15 | PN- Student ---
Subjective Subjective: This morning the pt states she is feeling good. She said that she is having incisional site pain but even with that she feels better than yesterday. The NG tube she said has helped reduce her feeling of bloation. She didn't have any n/v after the insertion of NG tube. Since the episode of diarrhea yesterday morning, pt hasn't passed flatus/bm. This morning the wall suction has about 350 cc in it. She has been oob and ambulating some. No further complaints at this time. Objective Objective: Gen: o&ax3, laying in bed comfortable, nad Lung: CTA Heart: RRR Abdomen: s/p c/s w/ pfannenstiel incision- alexy in place, clean/dry/intact. hypoactive bs, abd moderately distended, soft, nt to palpation, no rigidity/ gaurding w/ deep palp LE: skin warm/dry, 1+ bilateral edema Results Results: Laboratory Tests 01/03/18 0816: Anion Gap 8, Estimated GFR > 60, BUN/Creatinine Ratio 11.7, CBC w Diff NO MAN DIFF REQ, RBC 3.28 L, MCV 76.6 L, MCH 25.8 L, MCHC 33.7, RDW 14.8 H, MPV 8.8 , Gran % 77.4 H, Lymphocytes % 16.7 L, Monocytes % 4.4, Eosinophils % 1.3, Basophils % 0.2, Absolute Granulocytes 4.6, Absolute Lymphocytes 1.0 L, Absolute Monocytes 0.3, Absolute Eosinophils 0.1, Absolute Basophils 0 01/02/18 1700: Anion Gap 6, Estimated GFR > 60, BUN/Creatinine Ratio 10.0, Total Bilirubin 0.7, Direct Bilirubin 0.2, AST 15, ALT 27, Alkaline Phosphatase 120, Total Protein 5.3 L, Albumin 2.6 L 01/02/18 1417: Urine Color Cancelled, Urine Clarity Cancelled, Urine pH Cancelled, Ur Specific [place] Cancelled, Urine Protein Cancelled, Urine Ketones Cancelled, Urine Nitrite Cancelled, Urine Bilirubin Cancelled, Urine Urobilinogen Cancelled, Ur Leukocyte Esterase Cancelled, Ur Microscopic Cancelled, Urine Hemoglobin Cancelled, Urine Glucose Cancelled 01/02/18 1340: Urinalysis LIGHT H, Urine Color YEL, Urine Clarity HAZY H, Urine pH 8.0, Ur Specific [place] 1.020, Urine Protein TRACE H, Urine Ketones NEG, Urine Nitrite NEG, Urine Bilirubin NEG, Urine Urobilinogen >=8.0 H, Ur Leukocyte Esterase SMALL H, Ur Microscopic SEDIMENT EXAMINED, Urine RBC 3-5, Urine WBC 1-3 H, Ur Epithelial Cells MOD H, Urine Bacteria FEW H, Urine Hemoglobin LARGE H, Urine Glucose NEG 01/02/18 1018: CBC w Diff NO MAN DIFF REQ, RBC 3.26 L, MCV 77.7 L, MCH 25.6 L, MCHC 32.9 L, RDW 14.4, MPV 9.0, Gran % 84.4 H, Lymphocytes % 9.6 L, Monocytes % 5.1, Eosinophils % 0.8, Basophils % 0.1, Absolute Granulocytes 6.3, Absolute Lymphocytes 0.7 L, Absolute Monocytes 0.4, Absolute Eosinophils 0.1, Absolute Basophils 0 01/02/18 0900: Anion Gap 5, Estimated GFR > 60, BUN/Creatinine Ratio 12.0, Magnesium 1.7 Microbiology 01/02 1340 URINE ROUT: Urine Culture - RES GRAM NEGATIVE RODS 01/02 1140 BLOOD: Blood Culture - RES 01/02 1018 BLOOD: Blood Culture - RES Assessment/Plan Assessment: This is a 27 yo female with who is 5 days post from a c/s complicated by sbo vs post op ileus. Plan: -NGT placed yesterday with 350 cc of bilious output -No BM/flatus. 1 episode of diarrhea yesterday -Pt should remain NPO w/ IV fluids running, awaiting further return of bowel function -Xray done yesterday shows decrease in dilated bowel, limited view -Will discuss w/ Dr. Chen -Serial abd exams, multiview AXR today -Encourage oob and ambulation
--- NOTE | 2018-01-04 08:24 | PN- General Surgery ---
See Addendum Subjective Subjective: Patient resting comfortably in bed. NGT remains to continuous low wall suction. Still no flatus. No BM since episode of diarrhea 2 days ago. Not ambulating much around room. Voiding spontaneously. Objective Vital Signs and I&Os AVSS Physical Exam: Gen: AAOx3 in NAD Abd: soft, NT, distended, tympanitic, hypoactive BS auscultated. Ext: 1+ edema to tamar lower extremities. Calves soft. NGT: 150/150/0 bilious Current Medications: Current Medications Sig/Shantelle Start time Last Medication Dose Route Stop Time Status Admin Acetaminophen 0 .STK-MED ONE 01/03 2331 DC IV Acetaminophen 0 .STK-MED ONE 01/03 1712 DC IV Acetaminophen 0 .STK-MED ONE 01/03 0827 DC IV Acetaminophen 1,000 MG Q6P PRN 01/02 1915 01/04 N/A 1 UNIT IV 0000 Acetaminophen 650 MG Q4P PRN 12/29 2345 01/02 PO 1435 Acyclovir See Dose APPLY TO SKIN 01/01 1530 01/01 Insts (1) TOP 1946 Albuterol Sulfate 2 PUF Q4P PRN 12/31 1430 AC INH Bisacodyl 10 MG DAILY NEEDED PRN 12/29 2345 FL Ceftriaxone Sodium 1,000 MG DAILY 01/03 1245 01/03 IV 1426 Dextrose/Lactated 1,000 ML Q8H 01/03 2115 01/04 Ringer's IV 0532 Dextrose/Lactated 1,000 ML .Q24H 01/02 0930 DC Ringer's IV Dextrose/Water 1,000 ML Q8H 01/03 1145 IL 01/03 IV 1136 Diphenhydramine HCl 0 .STK-MED ONE 01/04 0002 DC .ROUTE Diphenhydramine HCl 25 MG ONCE ONE 01/03 2345 IL 01/04 IV PUSH 01/03 2346 0000 Diphenhydramine HCl 50 MG Q6P PRN 12/30 0030 AC IM Enoxaparin Sodium 40 MG DAILY 12/30 0900 AC 01/03 SC 0912 Famotidine 20 MG BID 01/02 2215 01/03 IV 2052 Ibuprofen 800 MG Q6P PRN 12/29 2345 12/31 PO 0114 Ketorolac 30 MG Q6-PRN PRN 01/03 1445 AC 01/04 Tromethamine IV 01/06 1444 0533 Ketorolac 30 MG ONE TIME ONE 01/03 0915 DC 01/03 Tromethamine IV 01/03 09 0910 Ketorolac 0 .STK-MED ONE 01/03 09 DC Tromethamine .ROUTE Magnesium Hydroxide 30 ML DAILY NEEDED PRN 12/29 2345 AC PO Ondansetron HCl 4 MG Q6P PRN 12/31 1800 AC 01/03 IV 0508 Oxycodone/ 1 TAB Q4P PRN 12/29 2345 DC 12/31 Acetaminophen PO 0114 Oxycodone/ 2 TAB Q4P PRN 12/29 234 DC Acetaminophen PO Phenol 2 SPRAY Q2P PRN 01/03 1800 AC 01/03 EXT 1447 Senna 187 MG AT BEDTIME NEED.. 12/29 234 AC 12/30 PO 212 Simethicone 80 MG Q6P PRN 12/30 213 AC 12/30 PO 212 Dose Instructions: (1)Acyclovir: apply to affected area as needed Results Last 48 Hours of Labs: Laboratory Tests 01/03 01/02 01/02 08 1700 1417 Chemistry Sodium (137 - 145 mmol/L) 135 L 136 L Potassium (3.5 - 5.1 mmol/L) 3.5 3.4 L Chloride (98 - 107 mmol/L) 102 103 Carbon Dioxide (22 - 30 mmol/L) 26 27 Anion Gap (5 - 16) 8 6 BUN (7 - 17 mg/dL) 7 6 L Creatinine (0.5 - 1.0 mg/dL) 0.6 0.6 Estimated GFR (>60 ml/min) > 60 > 60 BUN/Creatinine Ratio (7 - 25 %) 11.7 10.0 Total Bilirubin (0.2 - 1.3 mg/dL) 0.7 Direct Bilirubin (< 0.4 mg/dL) 0.2 AST (14 - 36 U/L) 15 ALT (9 - 52 U/L) 27 Alkaline Phosphatase (<127 U/L) 120 Total Protein (6.3 - 8.2 g/dL) 5.3 L Albumin (3.5 - 5.0 g/dL) 2.6 L Hematology CBC w Diff NO MAN DIFF REQ WBC (4.8 - 10.8 /CUMM) 5.9 RBC (4.20 - 5.40 /CUMM) 3.28 L Hgb (12.0 - 16.0 G/DL) 8.5 L Hct (37 - 47 %) 25.2 L MCV (81.0 - 99.0 FL) 76.6 L MCH (27.0 - 31.0 PG) 25.8 L MCHC (33.0 - 37.0 G/DL) 33.7 RDW (11.5 - 14.5 %) 14.8 H Plt Count (130 - 400 /CUMM) 402 H MPV (7.4 - 10.4 FL) 8.8 Gran % (42.2 - 75.2 %) 77.4 H Lymphocytes % (20.5 - 51.1 %) 16.7 L Monocytes % (1.7 - 9.3 %) 4.4 Eosinophils % (0 - 5 %) 1.3 Basophils % (0.0 - 2.0 %) 0.2 Absolute Granulocytes (1.4 - 6.5 /CUMM) 4.6 Absolute Lymphocytes (1.2 - 3.4 /CUMM) 1.0 L Absolute Monocytes (0.10 - 0.60 /CUMM) 0.3 Absolute Eosinophils (0.0 - 0.7 /CUMM) 0.1 Absolute Basophils (0.0 - 0.2 /CUMM) 0 Urines Urine Color Cancelled Urine Clarity Cancelled Urine pH Cancelled Ur Specific [place] Cancelled Urine Protein Cancelled Urine Ketones Cancelled Urine Nitrite Cancelled Urine Bilirubin Cancelled Urine Urobilinogen Cancelled Ur Leukocyte Esterase Cancelled Ur Microscopic Cancelled Urine Hemoglobin Cancelled Urine Glucose Cancelled 01/02 01/02 1340 1018 Hematology CBC w Diff NO MAN DIFF REQ WBC (4.8 - 10.8 /CUMM) 7.5 RBC (4.20 - 5.40 /CUMM) 3.26 L Hgb (12.0 - 16.0 G/DL) 8.3 L Hct (37 - 47 %) 25.4 L MCV (81.0 - 99.0 FL) 77.7 L MCH (27.0 - 31.0 PG) 25.6 L MCHC (33.0 - 37.0 G/DL) 32.9 L RDW (11.5 - 14.5 %) 14.4 Plt Count (130 - 400 /CUMM) 329 MPV (7.4 - 10.4 FL) 9.0 Gran % (42.2 - 75.2 %) 84.4 H Lymphocytes % (20.5 - 51.1 %) 9.6 L Monocytes % (1.7 - 9.3 %) 5.1 Eosinophils % (0 - 5 %) 0.8 Basophils % (0.0 - 2.0 %) 0.1 Absolute Granulocytes (1.4 - 6.5 /CUMM) 6.3 Absolute Lymphocytes (1.2 - 3.4 /CUMM) 0.7 L Absolute Monocytes (0.10 - 0.60 /CUMM) 0.4 Absolute Eosinophils (0.0 - 0.7 /CUMM) 0.1 Absolute Basophils (0.0 - 0.2 /CUMM) 0 Urines Urinalysis LIGHT H Urine Color (YEL,AMB,STR) YEL Urine Clarity (CLEAR) HAZY H Urine pH (5.0 - 8.0) 8.0 Ur Specific [place] (1.001 - 1.035) 1.020 Urine Protein (NEG,<30 MG/DL) TRACE H Urine Ketones (NEG) NEG Urine Nitrite (NEG) NEG Urine Bilirubin (NEG) NEG Urine Urobilinogen (0.1 - 1.0 EU/dl) >=8.0 H Ur Leukocyte Esterase (NEG) SMALL H Ur Microscopic SEDIMENT EXAMINED Urine RBC (0 - 5 /HPF) 3-5 Urine WBC (0 - 2 /HPF) 1-3 H Ur Epithelial Cells (NONE,FEW) MOD H Urine Bacteria (NEG/NONE) FEW H Urine Hemoglobin (NEG) LARGE H Urine Glucose (N MG/DL) NEG 01/02 0900 Chemistry Sodium (137 - 145 mmol/L) 139 Potassium (3.5 - 5.1 mmol/L) 3.5 Chloride (98 - 107 mmol/L) 106 Carbon Dioxide (22 - 30 mmol/L) 28 Anion Gap (5 - 16) 5 BUN (7 - 17 mg/dL) 6 L Creatinine (0.5 - 1.0 mg/dL) 0.5 Estimated GFR (>60 ml/min) > 60 BUN/Creatinine Ratio (7 - 25 %) 12.0 Magnesium (1.6 - 2.3 mg/dL) 1.7 Assessment/Plan Assessment/Plan A: 27 yo female post (s/p 12/30/17) with post operative ileus, resolving. Plan: Continue NGT to CLWS. ?clamping trial today. OOB and ambulate. Encouraged to walk in hallway at least 3 times today. Patient to remain NPO. Further plans to follow per attending recommendations.
[2018-01-04 10:02] LABS: ABSOLUTE BASOPHIL COUNT 0 /CUMM (0.0-0.2); ABSOLUTE EOSINOPHIL COUNT 0.2 /CUMM (0.0-0.7); ABSOLUTE GRANULOCYTE CT 5.3 /CUMM (1.4-6.5); ABSOLUTE LYMPH COUNT 1.1 /CUMM (1.2-3.4); ABSOLUTE MONOCYTE COUNT 0.4 /CUMM (0.10-0.60); BASOPHIL % 0.2 % (0.0-2.0); EOSINOPHIL % 2.7 % (0-5); GRANULOCYTE % 75.6 % (42.2-75.2); HEMATOCRIT 24.3 % (37-47); MEAN CORPUSCULAR HGB 25.3 PG (27.0-31.0); MEAN CORPUSCULAR HGB CONC 32.7 G/DL (33.0-37.0); MEAN CORPUSCULAR VOLUME 77.5 FL (81.0-99.0); MEAN PLATELET VOLUME 8.4 FL (7.4-10.4); PLATELET COUNT 390 /CUMM (130-400); RBC DISTRIBUTION WIDTH 14.9 % (11.5-14.5); RED BLOOD CELL CT 3.14 /CUMM (4.20-5.40)
--- NOTE | 2018-01-04 13:08 | PN- OBGYN ---
Surgical Brief Attending Note Brief Attending Note: Pt is POD #6 s/p c/s now with SBO and UTI antibiotic sensitivities back pt ambulating in hallway she had a formed stool this am and is feeling somewhat better voiding well and NG draining 100cc this AM CBC wbc normal hct stable K+ 3.6 normal. abdomen soft, mildly-moderatly distended nontender absent BS. No CVAT 3+ edema of ankles plan she will need two weeks of Keflyx orally Surg plans on dc'ing Ng and starting clears
--- NOTE | 2018-01-04 14:21 | PN- Infect Dx ---
Subjective Subjective: T-max 100.5. She feels improved with no further nausea or vomiting. Her NG tube, which was inserted yesterday, has been removed. She now reports dysuria. Objective Last 24 Hrs of Vital Signs/I&O Her vital signs are stable Physical Exam Other Physical Findings: She appears comfortable in no acute distress Abdomen is obese, soft, mildly tender on palpation of the lower abdomen, with no guarding or rebound, positive bowel sounds Back bilateral CVA tenderness Extremities trace edema both lower extremities Results Last 24 Hours of Lab Results: Laboratory Tests 01/04 0930 Chemistry Sodium (137 - 145 mmol/L) 135 L Potassium (3.5 - 5.1 mmol/L) 3.6 Chloride (98 - 107 mmol/L) 103 Carbon Dioxide (22 - 30 mmol/L) 26 Anion Gap (5 - 16) 6 BUN (7 - 17 mg/dL) 12 Creatinine (0.5 - 1.0 mg/dL) 0.5 Estimated GFR (>60 ml/min) > 60 BUN/Creatinine Ratio (7 - 25 %) 24.0 Hematology CBC w Diff NO MAN DIFF REQ WBC (4.8 - 10.8 /CUMM) 7.0 RBC (4.20 - 5.40 /CUMM) 3.14 L Hgb (12.0 - 16.0 G/DL) 7.9 L Hct (37 - 47 %) 24.3 L MCV (81.0 - 99.0 FL) 77.5 L MCH (27.0 - 31.0 PG) 25.3 L MCHC (33.0 - 37.0 G/DL) 32.7 L RDW (11.5 - 14.5 %) 14.9 H Plt Count (130 - 400 /CUMM) 390 MPV (7.4 - 10.4 FL) 8.4 Gran % (42.2 - 75.2 %) 75.6 H Lymphocytes % (20.5 - 51.1 %) 15.1 L Monocytes % (1.7 - 9.3 %) 6.4 Eosinophils % (0 - 5 %) 2.7 Basophils % (0.0 - 2.0 %) 0.2 Absolute Granulocytes (1.4 - 6.5 /CUMM) 5.3 Absolute Lymphocytes (1.2 - 3.4 /CUMM) 1.1 L Absolute Monocytes (0.10 - 0.60 /CUMM) 0.4 Absolute Eosinophils (0.0 - 0.7 /CUMM) 0.2 Absolute Basophils (0.0 - 0.2 /CUMM) 0 Last 24 Hours of Eder Results: Blood cultures 2 January 02 negative Urine culture January 02 greater than 100,000 colonies of E. coli sensitive to all antibiotics and approximately 25,000 colonies of Proteus resistant only to Nitrofurantoin Recent Imaging Studies: Abdominal x-ray January 03 reveals a decrease in the dilated loops of bowel Assessment/Plan ID Impression: Improved, with her temperature now normal and white blood cell count remaining normal, on Ceftriaxone, Day 2 of treatment for a presumed pyelonephritis, with her urine culture positive for 2 gram-negative rods, though her urinalysis was unremarkable. She does now report dysuria and flank tenderness, which would support this diagnosis. Her small bowel obstruction appears to be resolving, now 5 days status post . Suggestion: 1. Further management of her small bowel obstruction per Surgery 2. Continue Ceftriaxone but, if she continues to improve and begins to take p.o., can change to Keflex 500 mg p.o. every 6 hours to complete a 2 week course of antibiotics Ene Garland MD will be covering over the weekend
--- NOTE | 2018-01-05 11:40 | PN- General Surgery ---
See Addendum Subjective Subjective: Patient is feeling much better. She had a formed bowel movement. She feels less distended, less pain, no nausea no vomiting, she is tolerating clears Objective Vital Signs and I&Os Vital signs stable, afebrile Physical Exam: Well-developed well-nourished no apparent distress. HEENT: Atraumatic, extraocular motion intact Neck: Supple, no lymphadenopathy Respiratory: No respiratory distress Abdomen: Softly distended, obese, positive bowel sounds, mild tenderness suprapubic region, no tympany Extremities: No edema, no calf pain Neuro: Alert and oriented x3 Psych: Mood affect normal, normal memory normal judgment. Skin: Warm and dry, no rash on exposed skin Assessment/Plan Assessment/Plan A: 27 yo female post (s/p 12/30/17) with post operative ileus, resolving. Plan: Recommend advancing the patient to full liquid diet and then advancing as tolerated OOB and ambulate. If continues to tolerate diet advances, may be discharged home later today versus tomorrow Core Measures Venous Thromboembolism VTE Risk Factors Smoker No Mechanical VTE Prophylaxis d/t Early Ambulation No VTE Pharm Prophylaxis d/t Surgical Contraindication (will order postop)
--- NOTE | 2018-01-05 12:10 | PN- Post Delivery/GYN ---
Subjective Subjective: feeling better passing gas and bm yesterday tollerating full liquids Review of Systems Constitutional: Denies: chills, fever. EENTM: Denies: blurred vision, double vision, visual changes. Cardiovascular: Denies: chest pain. Respiratory: Denies: cough. Gastrointestinal: Reports: abdominal pain. Denies: diarrhea, distention, bowel incontinence, nausea, vomiting. Genitourinary: Denies: discharge, dysuria. Neurological/Psychological: Denies: anxiety, depressed. Objective Last 24 Hrs of Vital Signs/I&O vss Physical Exam General Appearance Alert, Oriented X3, Cooperative, No Acute Distress Skin No Rashes Cardiovascular Regular Rate Lungs Clear to Auscultation Abdomen Soft, incision clean and dry fundus firm Neurological Normal Gait, Normal Speech, Strength at 5/5 X4 Ext, Normal Tone Current Medications: Current Medications Sig/Shantelle Start time Last Medication Dose Route Stop Time Status Admin Acetaminophen 0 .STK-MED ONE 01/04 1634 DC IV Acetaminophen 1,000 MG Q6P PRN 01/02 1915 01/04 N/A 1 UNIT IV 1639 Acetaminophen 650 MG Q4P PRN 12/29 2345 01/02 PO 1435 Acyclovir See Dose APPLY TO SKIN 01/01 1530 01/01 Insts (1) TOP 1946 Albuterol Sulfate 2 PUF Q4P PRN 12/31 1430 AC INH Bisacodyl 10 MG DAILY NEEDED PRN 12/29 2345 AC NV Ceftriaxone Sodium 1,000 MG 1430 01/04 1430 01/04 IV 1517 Ceftriaxone Sodium 1,000 MG DAILY 01/03 1245 AZ 01/03 IV 1426 Dextrose/Lactated 1,000 ML Q13H 01/05 0900 DC Ringer's IV Dextrose/Lactated 1,000 ML Q8H 01/03 2115 AZ 01/05 Ringer's IV 0740 Diphenhydramine HCl 50 MG Q6P PRN 12/30 0030 IM Enoxaparin Sodium 40 MG DAILY 12/30 0900 01/05 SC 0908 Famotidine 20 MG BID 01/02 2215 01/05 IV 0905 Ibuprofen 800 MG Q6P PRN 12/29 2345 12/31 PO 0114 Ketorolac 0 .STK-MED ONE 01/04 2122 DC Tromethamine .ROUTE Ketorolac 30 MG Q6-PRN PRN 01/03 1445 AC 01/05 Tromethamine IV 01/06 1444 0909 Magnesium Hydroxide 30 ML DAILY NEEDED PRN 12/29 2345 AC PO Ondansetron HCl 4 MG Q6P PRN 12/31 1800 AC 01/03 IV 0508 Phenol 2 SPRAY Q2P PRN 01/03 1800 AC 01/03 EXT 1447 Senna 187 MG AT BEDTIME NEED.. 12/29 2345 AC 12/30 PO 2123 Simethicone 0 .STK-MED ONE 01/05 0916 DC PO Simethicone 0 .STK-MED ONE 01/04 1855 DC PO Simethicone 80 MG Q6P PRN 12/30 2130 AC 01/05 PO 0917 Dose Instructions: (1)Acyclovir: apply to affected area as needed Assessment/Plan Assessment/Plan POD #7 s/p c/s and post op SBO now resolving plan advance diet consider d/c home tomorrow Problem List: 1. Postoperative ileus 2. Delivery by section of full-term Attending MD Review Statement Attending Statement Attending MD Statement: examined this patient, discussed with family, discussed with nursing
--- NOTE | 2018-01-06 08:00 | PN- Student ---
Risa Sales 01/06/18 0753: Subjective Subjective: The pt is feeling great this morning and states she is eager to get home. She has had loose and formed bowel movements over past 2 days, she continues to pass flatus. Her abdomen she reports feels less distended and she hasn't had any n/v. She tolerated her full liquid diet yesterday. Objective Objective: Gen: o&ax3, laying in bed comfortable, nad Lung: CTA Heart: RRR Abdomen: s/p c/s w/ pfannenstiel incision- alexy removed, incision healing well- clean/dry/intact. normoactivee bs, soft, non distended, nt to palpation, no rigidity/gaurding w/ deep palp LE: skin warm/dry, 1+ bilateral edema Results Results: Laboratory Tests 01/04/18 0930: Anion Gap 6, Estimated GFR > 60, BUN/Creatinine Ratio 24.0, CBC w Diff NO MAN DIFF REQ, RBC 3.14 L, MCV 77.5 L, MCH 25.3 L, MCHC 32.7 L, RDW 14.9 H, MPV 8.4, Gran % 75.6 H, Lymphocytes % 15.1 L, Monocytes % 6.4, Eosinophils % 2.7, Basophils % 0.2, Absolute Granulocytes 5.3, Absolute Lymphocytes 1.1 L, Absolute Monocytes 0.4, Absolute Eosinophils 0.2, Absolute Basophils 0 01/03/18 0816: Anion Gap 8, Estimated GFR > 60, BUN/Creatinine Ratio 11.7, CBC w Diff NO MAN DIFF REQ, RBC 3.28 L, MCV 76.6 L, MCH 25.8 L, MCHC 33.7, RDW 14.8 H, MPV 8.8 , Gran % 77.4 H, Lymphocytes % 16.7 L, Monocytes % 4.4, Eosinophils % 1.3, Basophils % 0.2, Absolute Granulocytes 4.6, Absolute Lymphocytes 1.0 L, Absolute Monocytes 0.3, Absolute Eosinophils 0.1, Absolute Basophils 0 Assessment/Plan Assessment: This is a 27 yo female who is 7 days post from a c/s complicated by post op ileus. Plan: -For breakfast, advance to reg diet -If pt tolerates breakfast, likely ready for discharge today -Encourage oob,ambulation, PO fluid intake -Zofran prn nausea -Discharge planning d/w Pt Lamar [place] 01/06/18 0834: Subjective Subjective: PATEINT FEELING WELL WITHOUT COMPLAINST, ADVANCE DIET TODAY AND IF TOLARATES OK TO D/C FROM GENERAL SURGERY STANDPOINT
--- NOTE | 2018-01-06 10:26 | PN- Post Delivery/GYN ---
Subjective Subjective: feeling well asking to go home passing gas and bm. Review of Systems Constitutional: Denies: chills, fever. EENTM: Denies: blurred vision, double vision, visual changes. Cardiovascular: Denies: chest pain. Respiratory: Denies: cough, short of breath. Gastrointestinal: Denies: abdominal pain, bloating, diarrhea, distention, nausea, vomiting. Genitourinary: Denies: dysuria. Neurological/Psychological: Denies: anxiety, depressed. Objective Last 24 Hrs of Vital Signs/I&O vss afebrile Physical Exam General Appearance Alert, Oriented X3, Cooperative, No Acute Distress Cardiovascular Regular Rate Lungs Clear to Auscultation Abdomen Normal Bowel Sounds, Soft, No Tenderness, fundus firm, incision clean and dry Neurological Normal Gait, Normal Speech, Strength at 5/5 X4 Ext Pelvic (FEMALE) lochia serous Current Medications: Current Medications Sig/Shantelle Start time Last Medication Dose Route Stop Time Status Admin Acetaminophen 1,000 MG Q6P PRN 01/02 1915 01/04 N/A 1 UNIT IV 1639 Acetaminophen 650 MG Q4P PRN 12/29 2345 AC 01/02 PO 1435 Acyclovir See Dose APPLY TO SKIN 01/01 1530 AC 01/01 Insts (1) TOP 1946 Albuterol Sulfate 2 PUF Q4P PRN 12/31 1430 AC INH Bisacodyl 10 MG DAILY NEEDED PRN 12/29 2345 AC CO Ceftriaxone Sodium 1,000 MG 1430 01/04 1430 AC 01/05 IV 1432 Dextrose/Lactated 1,000 ML Q13H 01/05 09 DC Ringer's IV Diphenhydramine HCl 50 MG Q6P PRN 12/30 0030 AC IM Enoxaparin Sodium 40 MG DAILY 12/30 09 AC 01/06 SC 0914 Famotidine 20 MG BID 01/06 0900 AC 01/06 PO 0931 Famotidine 20 MG BID 01/02 2215 DC 01/05 IV 2116 Ibuprofen 800 MG Q6P PRN 12/29 2345 AC 12/31 PO 0114 Ketorolac 0 .STK-MED ONE 01/05 1534 DC Tromethamine .ROUTE Ketorolac 30 MG Q6-PRN PRN 01/03 1445 01/06 Tromethamine IV 01/06 1444 0503 Magnesium Hydroxide 30 ML DAILY NEEDED PRN 12/29 2345 AC PO Ondansetron HCl 4 MG Q6P PRN 12/31 1800 AC 01/03 IV 0508 Phenol 2 SPRAY Q2P PRN 01/03 1800 AC 01/03 EXT 1447 Senna 187 MG AT BEDTIME NEED.. 12/29 2345 AC 12/30 PO 2123 Simethicone 80 MG Q6P PRN 12/30 2130 AC 01/05 PO 0917 Dose Instructions: (1)Acyclovir: apply to affected area as needed Assessment/Plan Assessment/Plan POD #8 s/p SBO resolved plan d/c home f/u 48 hrs in office continue antibiotics for cystitis Motrin for pain PNV start FeSO4 later this week Problem List: 1. Delivery by section of full-term 2. Postoperative ileus Attending MD Review Statement Attending Statement Attending MD Statement: examined this patient, discussed with family, discussed with nursing
[2018-01-06] MEDS ORDERED: IBUPROFEN800 M1 PO (10:31)
[2018-01-06] MEDS ORDERED: KEFLEX250 M1 PO (10:31)
== END 2018-01-06 11:54 | DRG 540 ==
LOC: CBCO 01:18 → GNO 02:58
PROVIDERS: Obstetrics & Gynecology
PROC: 10D00Z1 Extraction of Products of Conception, Low, Open Approach (ICD-10-PCS; principal; 2017-12-29)
DX: O62.1 Secondary uterine inertia (principal); E66.01 Morbid (severe) obesity due to excess calories; K56.609 Unspecified intestinal obstruction, unspecified as to partial versus complete obstruction; O99.214 Obesity complicating childbirth; K56.7 Ileus, unspecified; O86.21 Infection of kidney following delivery; O36.63X0 Maternal care for excessive fetal growth, third trimester, not applicable or unspecified; O32.3XX0 Maternal care for face, brow and chin presentation, not applicable or unspecified; Z3A.39 39 weeks gestation of pregnancy; Z37.0 Single live birth; Z88.0 Allergy status to penicillin; O99.334 Smoking (tobacco) complicating childbirth; O99.63 Diseases of the digestive system complicating the puerperium; O99.824 Streptococcus B carrier state complicating childbirth; O99.02 Anemia complicating childbirth; F17.200 Nicotine dependence, unspecified, uncomplicated
CPT/HCPCS: GNOP; GNOS; 71046; 74018; 74021; 74177; 81001; 82436; 84112; 87040; 87086; J0131; J0690; J0696; J1200; J1650; J1885; J2405; J3101; J3370; J7040; J7120